=== PATIENT | female | born 1935 | race Caucasian/White ===

== ENCOUNTER 2022-07-10 17:16 | Inpatient (IN) | payer OTHER ==
[~2022-07-10] VITALS: Ht 160 cm; Wt 66.2 kg
[2022-07-10] MEDS ORDERED: GABAPENTIN100 M2 PO (17:36)
[2022-07-10] MEDS ORDERED: MEMANTINE HCL5 MG PO (17:36)
[2022-07-10] MEDS ORDERED: ROSUVASTATIN CAL5 MG PO (17:36)
== END 2022-07-16 16:21 | disposition home or self-care (01) | DRG 690 ==
LOC: ER 17:16 → SEC-K 22:52 → MEDI 22:52
PROVIDERS: ADMIT Internal Medicine; ATTEND Internal Medicine
PROC: BW21ZZZ Computerized Tomography (CT Scan) of Abdomen and Pelvis (ICD-10-PCS; principal; 2022-07-10)
DX: N39.0 Urinary tract infection, site not specified (principal); R31.9 Hematuria, unspecified; D72.829 Elevated white blood cell count, unspecified; I10 Essential (primary) hypertension; F03.90 Unspecified dementia, unspecified severity, without behavioral disturbance, psychotic disturbance, mood disturbance, and anxiety; Z86.19 Personal history of other infectious and parasitic diseases; E78.5 Hyperlipidemia, unspecified